=== PATIENT | male | born 1995 | race Caucasian/White ===

== ENCOUNTER 2023-06-23 13:16 | Emergency (ER) | payer OTHER ==
[~2023-06-23] VITALS: Ht 162.6 cm; Wt 113.4 kg
[2023-06-23 13:48] VITALS: BP 155/91; PULSE 86; RESP 18; TEMP 98; O2SAT 98
[2023-06-23 15:38] LABS: FLU A ANTIGEN negative (NEGATIVE); FLU B ANTIGEN NEGATIVE (NEGATIVE)
[2023-06-23] MEDS ORDERED: KETOROLAC 30 MG/ML VIAL IM ONE (16:45)
[2023-06-23] MEDS ORDERED: ACETAMINOPHEN EXTRA STRENGTH 500 MG TAB PO ONE (16:45)
[2023-06-23] MEDS ORDERED: ALBU0.0912 INH (16:48)
[2023-06-23] MEDS ORDERED: AZIT250T4 PO (16:48)
[2023-06-23] MEDS ORDERED: PRED20TA5 PO (16:48)
[2023-06-23] MEDS ORDERED: [UNRECOGNIZED DRUG - CODE] PO (16:48)
[2023-06-23] MEDS ORDERED: SUD30 PO (16:48)
[2023-06-23 17:24] VITALS: BP 145/87; PULSE 86; RESP 18; TEMP 98; O2SAT 98
== END 2023-06-23 17:25 | disposition home or self-care (01) ==
LOC: MED 13:16
DX: J40 Bronchitis, not specified as acute or chronic (principal); Z20.822 Contact with and (suspected) exposure to COVID-19; Z79.899 Other long term (current) drug therapy; Z79.2 Long term (current) use of antibiotics
CPT/HCPCS: 71046; 87426; 87804; 96372; 99284; J1885